=== PATIENT | female | born 1985 | race Caucasian/White ===

== ENCOUNTER 2017-10-15 22:13 | Emergency (ER) | payer SELFPAY ==
[2017-10-15] MEDS ORDERED: Promethazine HCl 25 MG/ML VIAL ONE (22:34)
[2017-10-15] MEDS ORDERED: Sterile Water 10 ML ONE (22:34)
[2017-10-15] MEDS ORDERED: cefTRIAXone\\ROCEPHIN 1 GM VIAL ONE (22:34)
== END 2017-10-15 22:59 | disposition home or self-care (01) ==
LOC: MADERS 22:13
DX: H66.93 Otitis media, unspecified, bilateral (principal); F41.9 Anxiety disorder, unspecified; F17.210 Nicotine dependence, cigarettes, uncomplicated
CPT/HCPCS: 96372; A4216; J0696; J2550

== ENCOUNTER 2017-10-25 09:51 | Emergency (ER) | payer SELFPAY ==
[~2017-10-25 09:51] MED LIST: Sodium Chloride Irrig Solution 250 ML BOT ONE
== END 2017-10-25 10:40 | disposition home or self-care (01) ==
LOC: MADERS 09:51
DX: S61.210A Laceration without foreign body of right index finger without damage to nail, initial encounter (principal); F41.9 Anxiety disorder, unspecified; F17.210 Nicotine dependence, cigarettes, uncomplicated; W25.XXXA Contact with sharp glass, initial encounter
CPT/HCPCS: 12001